=== PATIENT | male | born 1980 | race Caucasian/White ===

== ENCOUNTER 2022-03-01 11:38 | Emergency (ER) | payer SELFPAY ==
[~2022-03-01] VITALS: Ht 195.6 cm; Wt 117.9 kg
[~2022-03-01 11:38] MED LIST: INDOMETHACIN25 MG PO
[2022-03-01] MEDS ORDERED: OXYMETAZOLINE HCL 0.05% NAS 1 SPRAY BTL ONE ×2 (12:15→12:17)
[2022-03-01] MEDS ORDERED: CLONIDINE HCL 0.2 MG TAB PO ONE (12:15)
[2022-03-01] MEDS ORDERED: SILVER NITRATE SWABS ONE ×2 (12:22→12:28)
[2022-03-01] MEDS ORDERED: BENICAR20 MG PO (12:32)
[2022-03-01] MEDS ORDERED: AMLODIPINE BESY10 MG PO (12:32)
== END 2022-03-01 12:47 | disposition home or self-care (01) ==
LOC: ER 11:45
DX: R04.0 Epistaxis (principal); I10 Essential (primary) hypertension; M10.9 Gout, unspecified
CPT/HCPCS: 99283